=== PATIENT | male | born 1945 | race Caucasian/White ===

== ENCOUNTER 2021-09-26 08:41 | Outpatient (RCR) | payer MEDICARE, OTHER, SELFPAY ==
--- NOTE | ~2021-09-26 | XR_ITS ---
EXAMINATION: XR CALCANEUS, LEFT CLINICAL INFORMATION: Unhealing wound COMPARISON: None TECHNIQUE: Lateral and axial views of the left calcaneus were obtained. FINDINGS: Radiolucency involving the lateral aspect of the calcaneus, this raise concern for possible osteomyelitis. There is no fracture. No subcutaneous emphysema. XR/XR calcaneus LT min 2V IMPRESSION: Radiolucency, bone demyelination involving the posterior lateral aspect of the calcaneus raising concern for possible osteomyelitis. MRI could be utilized for further evaluation.
[2022-01-09 11:11] LABS: MANUAL DIFF FLAG NO
[2022-01-09 11:44] LABS: Basophils Absolute Auto 0.1 X10*3/uL (0.0-0.2); Basophils Percent Auto 0.8 % (0-2); Eosinophils Absolute Auto 0.1 X10*3/uL (0.0-0.4); Eosinophils Percent Auto 0.8 % (0-4); Hematocrit 38.8 % (42.0-52.0); Hemoglobin 12.3 g/dl (14.0-18.0); Imm Gran Abs Auto 0.03 X10*3/uL (0.00-0.03); Imm Gran Pct Auto 0.3 % (0.0-0.4); Lymphocytes Absolute Auto 2.8 X10*3/uL (1.2-4.9); Lymphocytes Percent Auto 29.9 % (20-40); Mean Corpuscular HGB Conc 31.7 g/dl (31.0-36.0); Mean Corpuscular Hemoglobin 30.8 pg (27.0-33.0); Mean Platelet Volume 9.9 fL (9.4-12.4); Monocytes Absolute Auto 1.3 X10*3/uL (0.1-1.2); Monocytes Percent Auto 13.5 % (2-11); Neutrophils Absolute Auto 5.2 x10*3/uL (2.0-8.3); Neutrophils Percent Auto 54.7 % (45-73); Platelet Count 317 X10*3/uL (160-400); Red Cell Distribution Width 13.8 % (11.0-16.0); White Blood Count 9.5 X10*3/uL (4.8-10.8)
[2022-01-09 12:02] LABS: Estimated Average Glucose 154 mg/dL
[2022-01-09 12:28] LABS: Anion Gap 14 (12-20); Blood Urea Nitrogen 69 mg/dL (9-16); Calcium 9.6 mg/dL (8.4-10.2); Carbon Dioxide 23 mmol/L (22-29); Chloride 110 mmol/L (96-108); Estimated Glomerular Filt Rate 25; Glucose Fasting 83 mg/dL (60-99); Potassium 4.5 mmol/L (3.3-5.1); Sodium 142 mmol/L (135-145)
[2022-01-09 12:35] LABS: Erythrocyte Sedimentation Rate 51 MM/HR (0-15)
== END 2022-08-30 16:00 | disposition home or self-care (01) ==
LOC: HO.WCC 08:41
PROVIDERS: Physician Assistant; PCP Family Medicine; Visit Provider Surgery
DX: L89.623 Pressure ulcer of left heel, stage 3 (principal); L89.612 Pressure ulcer of right heel, stage 2; G62.9 Polyneuropathy, unspecified; J44.9 Chronic obstructive pulmonary disease, unspecified; I10 Essential (primary) hypertension; F03.90 Unspecified dementia, unspecified severity, without behavioral disturbance, psychotic disturbance, mood disturbance, and anxiety; Z87.891 Personal history of nicotine dependence; Z86.718 Personal history of other venous thrombosis and embolism
CPT/HCPCS: 11042; 11043; 15271; 15275; 36415; 73650; 80048; 83036; 84134; 85025; 85652; 86140; 87071; 87077; 87186; 87205; Q4187